=== PATIENT | female | born 1955 | race Caucasian/White ===

== ENCOUNTER 2019-09-25 11:51 | Emergency (ER) | payer MEDICAID, OTHER ==
[~2019-09-25] VITALS: Ht 162.6 cm; Wt 68.0 kg
[2019-09-25] MEDS ORDERED: LORazepam 0.5 MG TAB PO ONE (12:30)
[2019-09-25 12:36] VITALS: BP 133/76
== END 2019-09-25 13:29 | disposition home or self-care (01) ==
LOC: ER 11:51
DX: F41.1 Generalized anxiety disorder (principal); Z76.0 Encounter for issue of repeat prescription; Z88.2 Allergy status to sulfonamides